=== PATIENT | female | born 1980 | race Caucasian/White ===

== ENCOUNTER 2016-09-19 13:10 | Emergency (ER) | payer OTHER ==
[~2016-09-19] VITALS: Ht 149.9 cm; Wt 81.0 kg
[~2016-09-19 13:10] MED LIST: DIPH25CA65 PO; INSDGIPEN SC; LEVO100T7 PO; ONDA4TAB46 PO; ONDA8TAB6 PO; PRED20TA PO; [UNRECOGNIZED DRUG - CODE] PO
[2016-09-19 13:24] VITALS: TEMP 36.5; Ht 149.9 cm; Wt 81.0 kg
[2016-09-19] MEDS ORDERED: ASPI81TA28 PO (14:19)
[2016-09-19] MEDS ORDERED: SYN100 PO (14:19)
[2016-09-19] MEDS ORDERED: INSPMPNVLG (14:19)
[2016-09-19] MEDS ORDERED: ERGO500037 PO (14:19)
[2016-09-19] MEDS ORDERED: PRENTAB26 PO (14:19)
[2016-09-19 14:51] LABS: BASO % 0.1 %; BASO ABS # 0.01 K/uL (0-0.2); COMPLETE YES; EOS % 0.3 %; HEMATOCRIT 33.9 % (37-47); IG% 0.3 %; LYMPH % 23.8 %; LYMPH ABS # 2.06 K/uL (1.2-3.4); MEAN CELL VOLUME 86.9 fL (80-100); MEAN CORPUSCULAR HGB CONC 33.3 g/dl (32-36); MEAN PLATELET VOLUME 10.8 fL (7.4-10.4); MONO % 5.3 %; NEUT % 70.2 %; PLATELET COUNT 201 K/uL (130-400); WHITE BLOOD COUNT 8.65 K/uL (4.8-10.8)
[2016-09-19 15:10] LABS: BUN/CREATININE RATIO 22.9 (10-20); CALCIUM 9.6 mg/dl (8.5-10.1); CREATININE 0.53 mg/dl (0.60-1.20); POTASSIUM 3.7 mmol/L (3.5-5.1)
[2016-09-19 15:51] LABS: URINE APPEARANCE CLOUDY (CLEAR); URINE BILIRUBIN NEG (NEG); URINE COLOR YELLOW; URINE EPITHELIAL CELL AUTO >30 /lpf (0-5); URINE NITRITE NEG (NEG); URINE SPECIFIC GRAVITY 1.029 (1.000-1.030); UROBILINOGEN NEG (NEG); ZZUR CULT IF INDIC CLEAN CATCH NO
[2016-09-19 15:53] LABS: REVIEW REQ? YES
[2016-09-19 15:54] LABS: MANUAL MICROSCOPIC REQUIRED? NO
--- NOTE | 2016-09-19 16:11 | DIAGNOSTIC IMAGING REPORT ---
LIMITED ULTRASOUND CLINICAL HISTORY: Vaginal bleeding. 15 weeks . COMPARISON STUDY: No previous studies for comparison. TECHNIQUE: Transabdominal sonography of the pelvis was performed. FINDINGS: A single viable intrauterine gestation is noted. Presentation is breech. heart rate is normal at 164 bpm. The cervix was not well visualized. The placenta is located anteriorly. No placental abnormalities are identified. Please note that a dedicated anatomical survey was not performed. The biparietal diameter measured 2.97 cm and the femur length measured 1.8 cm. Estimated age on this exam is 15 weeks and 3 days. IMPRESSION: 1. Single viable intrauterine gestation. 2. Normal heart rate of 164 bpm. 3. Breech presentation. 4. Anterior placenta with no placental abnormality identified. 5. Estimated gestational age of this exam of 15 weeks and 3 days. Electronically signed by: Francesco Lancaster M.D. 09/19/2016 4:10 PM Dictated Date/Time: 09/19/2016 4:08 PM
--- NOTE | 2016-09-19 18:17 | DIAGNOSTIC IMAGING REPORT ---
RENAL ULTRASOUND CLINICAL HISTORY: Hematuria. Left lower abdominal pain. COMPARISON STUDY: CT of the abdomen and pelvis April 28, 2016 and renal ultrasound July 06, 2006. TECHNIQUE: Sonography of the kidneys and the urinary bladder was performed. FINDINGS: This exam is mildly compromised by suboptimal penetration. There is fatty infiltration of the liver. The right kidney measures 12.4 x 5.5 x 6.1 cm and the left measures 11.3 x 6.5 x 5.7 cm. There is no hydronephrosis. Neither ureteral jet was identified. Renal echogenicity, size and cortical thickness were normal. No calculi are identified by sonography. IMPRESSION: Unremarkable sonographic appearance of the kidneys. No hydronephrosis. Electronically signed by: Francesco Lancaster M.D. 09/19/2016 6:16 PM Dictated Date/Time: 09/19/2016 6:14 PM
--- NOTE | 2016-09-19 18:53 | EMERGENCY ROOM VISIT NOTE ---
History First contact with patient: 14:00 Chief Complaint: ED VAG BLEEDING Stated Complaint: SPOTTING & MILD PAIN - 15 WKS History of Present Illness The patient is a 35 year old female who presents to the Emergency Room with complaints of vaginal spotting. the patient is 15 weeks .. She states today at approximately 1245 she started with some mild spotting vaginally. The patient states that she noticed dark pink blood in her underwear and she mainly notices when she wipes when she urinates. The patient also has some mild pelvic discomfort. She denies any flank pain, nausea or vomiting. The patient does admit that she was nauseated on Monday but not today. The patient states that she has had one miscarriage in the past. She has no living children. The patient states that she is followed by Denis at [place] and also [facility]. She did not contact her [employer] for her current symptoms. The patient also admits to a history of kidney stones. The patient denies any urinary symptoms of frequency, urgency, dysuria or hematuria. She denies any flank pain. Review of Systems 10 system review was performed and was negative unless stated otherwise history of present illness. Past Medical/Surgical History Medical Problems: (1) Diabetes (2) Vasculitis Family History Diabetes mellitus FHx: cancer FHx: gallbladder disease FHx: heart disease Hypertension Kidney disease Seizures Social History Smoking Status: Former Smoker Alcohol Use: occasionally Marital Status: in relationship Housing Status: lives with family Occupation Status: employed Current/Historical Medications Scheduled Aspirin (Aspirin Ec), 81 MG PO DAILY Ergocalciferol (Vitamin D 29724 Unit), 50,000 UNIT PO WK Insulin Aspart (novoLOG INSULIN PUMP ), 1 EA N/A UD Levothyroxine Sodium (Levothyroxine Sodium), 100 MCG PO 6XWK Levothyroxine Sodium (Synthroid), 200 MCG PO WK Metformin Hcl Er (Glucophage Er), 1,000 MG PO BID Multivit/Min/Iron/Fol Ac/Pren ( Vitamin), 1 TAB PO DAILY Allergies Coded Allergies: Amoxicillin (Verified Allergy, Severe, severe shortness of breath, 09/19/16) Clavulanic Acid (Verified Allergy, Severe, severe shortness of breath, 09/19) Magnesium Salicylate (Verified Allergy, Unknown, UNK, 09/19/16) Tramadol (Verified Allergy, Unknown, itchy, 09/19/16) Physical Exam Vital Signs Date Time Temp Pulse Resp B/P Pulse Ox O2 Delivery O2 Flow Rate FiO2 09/19/16 18:15 97 16 122/67 98 Room Air 09/19/16 16:54 95 16 119/57 98 Room Air 09/19/16 13:24 36.5 109 18 156/80 96 Room Air Physical Exam GENERAL: 35-year-old white female who is 15 weeks appears in no acute distress. . MENTAL Status: Alert and oriented 3. MOUTH: Mucosa is moist NECK: Supple, no lymphadenopathy noted. No carotid bruits noted. LUNGS: Clear auscultation without wheezes rales or rhonchi. CARDIAC: Regular rate and rhythm without murmur. Pulses is full and equal throughout. BACK: No CVA tenderness noted. ABDOMEN: Positive bowel sounds all 4 quadrants. Soft, mild tenderness palpation in the left lower quadrant otherwise nontender to palpation without organomegaly or masses. PELVIC: Vulva and vagina without lesion. There is a small amount of blood in the vaginal vault and blood coming from the os. Cervix without lesion. Manual exam revealed uterus midline without masses or tenderness. Slight enlargement consistent with . Adnexal regions without masses. Mild tenderness in the left adnexal region. EXTREMITIES: No cyanosis or edema noted. Medical Decision & Procedures ER Provider Diagnostic Interpretation: LIMITED ULTRASOUND CLINICAL HISTORY: Vaginal bleeding. 15 weeks . COMPARISON STUDY: No previous studies for comparison. TECHNIQUE: Transabdominal sonography of the pelvis was performed. FINDINGS: A single viable intrauterine gestation is noted. Presentation is breech. heart rate is normal at 164 bpm. The cervix was not well visualized. The placenta is located anteriorly. No placental abnormalities are identified. Please note that a dedicated anatomical survey was not performed. The biparietal diameter measured 2.97 cm and the femur length measured 1.8 cm. Estimated age on this exam is 15 weeks and 3 days. IMPRESSION: 1. Single viable intrauterine gestation. 2. Normal heart rate of 164 bpm. 3. Breech presentation. 4. Anterior placenta with no placental abnormality identified. 5. Estimated gestational age of this exam of 15 weeks and 3 days. Electronically signed by: Francesco Lancaster M.D. 09/19/2016 4:10 PM RENAL ULTRASOUND CLINICAL HISTORY: Hematuria. Left lower abdominal pain. COMPARISON STUDY: CT of the abdomen and pelvis April 28, 2016 and renal ultrasound July 06, 2006. TECHNIQUE: Sonography of the kidneys and the urinary bladder was performed. FINDINGS: This exam is mildly compromised by suboptimal penetration. There is fatty infiltration of the liver. The right kidney measures 12.4 x 5.5 x 6.1 cm and the left measures 11.3 x 6.5 x 5.7 cm. There is no hydronephrosis. Neither ureteral jet was identified. Renal echogenicity, size and cortical thickness were normal. No calculi are identified by sonography. IMPRESSION: Unremarkable sonographic appearance of the kidneys. No hydronephrosis. Electronically signed by: Francesco Lancaster M.D. 09/19/2016 6:16 PM Laboratory Results 09/19/16 14:30 Red Blood Count 3.90, Mean Corpuscular Volume 86.9, Mean Corpuscular Hemoglobin 29.0, Mean Corpuscular Hemoglobin Concent 33.3, Mean Platelet Volume 10.8, Neutrophils (%) (Auto) 70.2, Lymphocytes (%) (Auto) 23.8, Monocytes (%) (Auto) 5.3, Eosinophils (%) (Auto) 0.3, Basophils (%) (Auto) 0.1, Neutrophils # (Auto) 6.06, Lymphocytes # (Auto) 2.06, Monocytes # (Auto) 0.46, Eosinophils # (Auto) 0.03, Basophils # (Auto) 0.01 09/19/16 14:30 Test 09/19/16 14:10 09/19/16 14:30 Urine Color YELLOW Urine Appearance CLOUDY (CLEAR) Urine pH 5.0 (4.5-7.5) Urine Specific [place] 1.029 (1.000-1.030) Urine Protein NEG (NEG) Urine Glucose (UA) NEG (NEG) Urine Ketones 1+ (NEG) Urine Occult Blood 3+ (NEG) Urine Nitrite NEG (NEG) Urine Bilirubin NEG (NEG) Urine Urobilinogen NEG (NEG) Urine Leukocyte Esterase NEG (NEG) Urine WBC (Auto) 1-5 /hpf (0-5) Urine RBC (Auto) 5-10 /hpf (0-4) Urine Hyaline Casts (Auto) 1-5 /lpf (0-5) Urine Epithelial Cells (Auto) >30 /lpf (0-5) Urine Bacteria (Auto) NEG (NEG) Urine Crystals CALCIUM OXALATE (NONE White Blood Count 8.65 K/uL (4.8-10.8) Red Blood Count 3.90 M/uL (4.2-5.4) Hemoglobin 11.3 g/dL (12.0-16.0) Hematocrit 33.9 % (37-47) Mean Corpuscular Volume 86.9 fL (80-100) Mean Corpuscular Hemoglobin 29.0 pg (25-34) Mean Corpuscular Hemoglobin Concent 33.3 g/dl (32-36) Platelet Count 201 K/uL (130-400) Mean Platelet Volume 10.8 fL (7.4-10.4) Neutrophils (%) (Auto) 70.2 % Lymphocytes (%) (Auto) 23.8 % Monocytes (%) (Auto) 5.3 % Eosinophils (%) (Auto) 0.3 % Basophils (%) (Auto) 0.1 % Neutrophils # (Auto) 6.06 K/uL (1.4-6.5) Lymphocytes # (Auto) 2.06 K/uL (1.2-3.4) Monocytes # (Auto) 0.46 K/uL (0.11-0.59) Eosinophils # (Auto) 0.03 K/uL (0-0.5) Basophils # (Auto) 0.01 K/uL (0-0.2) RDW Standard Deviation 43.2 fL (36.4-46.3) RDW Coefficient of Variation 13.7 % (11.5-14.5) Immature Granulocyte % (Auto) 0.3 % Immature Granulocyte # (Auto) 0.03 K/uL (0.00-0.02) Anion Gap 10.0 mmol/L (3-11) Est Creatinine Clear Calc Drug Dose 136.4 ml/min Estimated GFR () 142.6 Estimated GFR (Non- 123.0 BUN/Creatinine Ratio 22.9 (10-20) Calcium Level 9.6 mg/dl (8.5-10.1) Human Chorionic Gonadotropin, Quant 17750 mIU/mL ED Course The patient was evaluated. IV access was obtained. CBC and differential, renal profile was ordered. Blood type was ordered. The patient's blood type was A+ therefore she will not require RhoGAM. Urinalysis was ordered. Urinalysis analysis revealed some blood but no bacteria. It also revealed some calcium oxalate therefore a renal ultrasound was ordered. Culture is pending. Quantitative beta-hCG was ordered and was 42,[id number] consistent with her 15 weeks .. ultrasound was ordered and interpreted by the radiologist as above with a viable 15 week . Normal heart tones. The patient was informed of the findings.. Renal ultrasound revealed no evidence of hydronephrosis. The patient was informed of the findings. The patient was resting comfortably and was discharged home in stable condition. Medical Decision Differential diagnosis include miscarriage, UTI, pyelonephritis, kidney stone, Impression Primary Impression: Hematuria Additional Impression: Vaginal bleeding in patient at less than 20 weeks gestation Departure Information Dispostion Home / Self-Care Condition GOOD Referrals Richar Sosa III, M.D. (PCP) Forms HOME CARE DOCUMENTATION FORM, IMPORTANT VISIT INFORMATION, WORK / SCHOOL INSTRUCTIONS Patient Instructions [employer] Additional Instructions Push fluids. Tylenol as needed for pain. We will call you with the urine culture results if they are positive. Call your [employer]PER[employer]OR tomorrow for follow-up appointment as soon as possible. If you have any large amounts of vaginal bleeding return to the ER immediately. Problem Qualifiers
[2016-09-19 18:54] VITALS: BP 123/87; PULSE 103; O2SAT 98
[2016-09-19] MEDS ORDERED: METF500T5 PO (23:07)
== END 2016-09-19 18:57 | disposition home or self-care (01) ==
LOC: C.EDB 13:12
DX: R31.9 Hematuria, unspecified (principal); O20.9 Hemorrhage in early pregnancy, unspecified; Z3A.15 15 weeks gestation of pregnancy; O24.112 Pre-existing type 2 diabetes mellitus, in pregnancy, second trimester; Z87.891 Personal history of nicotine dependence; Z83.3 Family history of diabetes mellitus; Z82.49 Family history of ischemic heart disease and other diseases of the circulatory system; Z82.0 Family history of epilepsy and other diseases of the nervous system; Z79.82 Long term (current) use of aspirin; Z79.4 Long term (current) use of insulin

== ENCOUNTER 2016-09-25 05:36 | Emergency (ER) | payer OTHER ==
[~2016-09-25] VITALS: Ht 149.9 cm; Wt 80.2 kg
[~2016-09-25 05:36] MED LIST changes: +ASPI81TA28 PO; -DIPH25CA65 PO; +ERGO500037 PO; -INSDGIPEN SC; +INSPMPNVLG; +METF500T5 PO; -ONDA4TAB46 PO; -ONDA8TAB6 PO; -PRED20TA PO; +PRENTAB26 PO; +SYN100 PO; -[UNRECOGNIZED DRUG - CODE] PO
[2016-09-25 05:44] VITALS: TEMP 36.5; Ht 149.9 cm; Wt 80.2 kg
[2016-09-25] MEDS ORDERED: SODIUM CHLORIDE 0.9% 1000ML 1,000 ML IV STA ×2 (05:50)
[2016-09-25] MEDS ORDERED: ACETAMINOPHEN 500 MG TAB PO STA (05:50)
[2016-09-25] MEDS ORDERED: ONDANSETRON INJ 2 MG/ML 2 ML VIAL IV STA (05:50)
[2016-09-25 06:09] LABS: BASO % 0.1 %; BASO ABS # 0.01 K/uL (0-0.2); COMPLETE YES; EOS % 0.3 %; IG% 0.3 %; LYMPH % 15.7 %; LYMPH ABS # 1.65 K/uL (1.2-3.4); MEAN CELL VOLUME 85.6 fL (80-100); MEAN CORPUSCULAR HGB CONC 33.8 g/dl (32-36); MEAN PLATELET VOLUME 10.6 fL (7.4-10.4); MONO % 6.1 %; NEUT % 77.5 %; PLATELET COUNT 226 K/uL (130-400); RED BLOOD COUNT 3.97 M/uL (4.2-5.4); WHITE BLOOD COUNT 10.48 K/uL (4.8-10.8)
[2016-09-25 06:37] LABS: URINE APPEARANCE CLOUDY (CLEAR); URINE BILIRUBIN NEG (NEG); URINE COLOR YELLOW; URINE EPITHELIAL CELL AUTO >30 /lpf (0-5); URINE NITRITE NEG (NEG); URINE PH 5.5 (4.5-7.5); URINE SPECIFIC GRAVITY 1.033 (1.000-1.030); UROBILINOGEN NEG (NEG); ZZUR CULT IF INDIC CLEAN CATCH YES
[2016-09-25 06:41] LABS: MANUAL MICROSCOPIC REQUIRED? NO; REVIEW REQ? NO
--- NOTE | 2016-09-25 07:14 | DIAGNOSTIC IMAGING REPORT ---
ABDOMINAL ULTRASOUND, RIGHT UPPER QUADRANT HISTORY: Right upper quadrant pain. COMPARISON: Right upper quadrant ultrasound June 25, 2011, CT of the abdomen and pelvis April 28, 2016 and renal ultrasound September 19, 2016. FINDINGS: Hepatic echogenicity is increased. No hepatic lesions are identified. There is no biliary ductal dilatation. There may be minimal sludge within the gallbladder. There are no gallstones. There is no gallbladder wall thickening. The pancreatic body is normal. The head and tail are obscured by overlying bowel gas. There is no right hydronephrosis. IMPRESSION: 1. No gallstones or biliary ductal dilatation. 2. Minimal sludge within the gallbladder. No gallbladder wall thickening. 3. No right hydronephrosis. 4. Fatty liver. Electronically signed by: Francesco Lancaster M.D. 09/25/2016 7:11 AM Dictated Date/Time: 09/25/2016 7:10 AM
[2016-09-25 07:16] LABS: ALT/SGPT 25 U/L (12-78); BLOOD UREA NITROGEN 10 mg/dl (7-18); BUN/CREATININE RATIO 21.1 (10-20); CALCIUM 8.8 mg/dl (8.5-10.1); CARBON DIOXIDE 22 mmol/L (21-32); CHLORIDE 105 mmol/L (98-107); CREATININE 0.46 mg/dl (0.60-1.20); GLUCOSE 102 mg/dl (70-99); SODIUM 140 mmol/L (136-145)
--- NOTE | 2016-09-25 07:17 | EMERGENCY ROOM VISIT NOTE ---
History First contact with patient: 05:48 Chief Complaint: FLANK PAIN Stated Complaint: RIGHT FLANK PAIN,VOMITING History of Present Illness The patient is a 35 year old female who presents to the Emergency Room with complaints of right flank right upper quadrant pain for the past day described as aching, ranging in severity currently 5 out of 10. Patient is 4 months . She follows with [facility]. This is her second . No living children. Nothing makes the pain better or worse. This is not like her kidney stone pain. Patient complains of urinary frequency without dysuria. Patient denies chest pain, dyspnea, fever, chills, cough, congestion, vaginal itching or discharge, diarrhea. Patient has HSP vasculitis falls with nephrology at Dr. Connor Barrios. Review of Systems See HPI for pertinent positives & negatives. A total of 10 systems reviewed and were otherwise negative. Past Medical/Surgical History Medical Problems: (1) Diabetes (2) Vasculitis Kidney stones Family History Diabetes mellitus FHx: cancer FHx: gallbladder disease FHx: heart disease Hypertension Kidney disease Seizures Social History Smoking Status: Never Smoker Alcohol Use: occasionally Marital Status: in relationship Housing Status: lives with family Occupation Status: employed Current/Historical Medications Scheduled Aspirin (Aspirin Ec), 81 MG PO DAILY Ergocalciferol (Vitamin D 33762 Unit), 50,000 UNIT PO WK Insulin Aspart (novoLOG INSULIN PUMP ), 1 EA N/A UD Levothyroxine Sodium (Levothyroxine Sodium), 100 MCG PO 6XWK Levothyroxine Sodium (Synthroid), 200 MCG PO WK Metformin Hcl Er (Glucophage Er), 1,000 MG PO BID Multivit/Min/Iron/Fol Ac/Pren ( Vitamin), 1 TAB PO DAILY Allergies Coded Allergies: Amoxicillin (Verified Allergy, Severe, severe shortness of breath, 09/25/16) Clavulanic Acid (Verified Allergy, Severe, severe shortness of breath, 09/25) Magnesium Salicylate (Verified Allergy, Unknown, UNK, 09/25/16) Tramadol (Verified Allergy, Unknown, itchy, 09/25/16) Physical Exam Vital Signs Date Time Temp Pulse Resp B/P Pulse Ox O2 Delivery O2 Flow Rate FiO2 09/25/16 06:37 91 18 125/73 99 Room Air 09/25/16 06:36 89 09/25/16 06:06 Room Air 09/25/16 05:44 36.5 93 18 151/80 96 Room Air Physical Exam VITALS: Vitals are noted on the nurse's note and reviewed by myself. Vital signs mildly hypertensive, repeat is improved GENERAL: Pleasant female, in no acute distress, nondiaphoretic, well-developed well-nourished. SKIN: The skin was without rashes, erythema, edema, or bruising. There is no tenting of the skin. Capillary reflex less than 2 seconds. HEAD: Normocephalic atraumatic. EARS: External auditory canals clear, tympanic membranes pearly saini without erythema or effusion bilaterally. EYES: Pupils equal round and reactive to light and accommodation. Conjunctivae without injection, sclerae without icterus. Extraocular movements intact. NOSE: Patent, turbinates without inflammation or discharge. MOUTH: Mucous membranes moist. Pharynx without erythema or exudate. Uvula midline. Airway patent. Tongue does not deviate. NECK: Supple without nuchal rigidity. No lymphadenopathy. No thyromegaly. Cervical spine is nontender. No JVD. HEART: Regular rate and rhythm without murmurs gallops or rubs. LUNGS: Clear to auscultation bilaterally without wheezes, rales or rhonchi. No dullness to percussion. No retractions or accessory muscle use. ABDOMEN: Positive bowel sounds x 4. Normal tympanic percussion. Soft, tender to palpation right upper quadrant, minimal right CVA tenderness, 16 weeks , without masses or organomegaly. Smallwood sign negative. No guarding or rebound tenderness. MUSCULOSKELETAL: No muscle atrophy, erythema, or edema noted. NEURO: Patient was alert and oriented to person place and time. Normal sensation to light and sharp touch. No focal neurological deficits. Medical Decision & Procedures Laboratory Results 09/25/16 05:55 Red Blood Count 3.97, Mean Corpuscular Volume 85.6, Mean Corpuscular Hemoglobin 29.0, Mean Corpuscular Hemoglobin Concent 33.8, Mean Platelet Volume 10.6, Neutrophils (%) (Auto) 77.5, Lymphocytes (%) (Auto) 15.7, Monocytes (%) (Auto) 6.1, Eosinophils (%) (Auto) 0.3, Basophils (%) (Auto) 0.1, Neutrophils # (Auto) 8.12, Lymphocytes # (Auto) 1.65, Monocytes # (Auto) 0.64, Eosinophils # (Auto) 0.03, Basophils # (Auto) 0.01 09/25/16 05:55 Test 09/25/16 05:45 09/25/16 05:55 Urine Color YELLOW Urine Appearance CLOUDY (CLEAR) Urine pH 5.5 (4.5-7.5) Urine Specific [place] 1.033 (1.000-1.030) Urine Protein 1+ (NEG) Urine Glucose (UA) NEG (NEG) Urine Ketones 2+ (NEG) Urine Occult Blood 3+ (NEG) Urine Nitrite NEG (NEG) Urine Bilirubin NEG (NEG) Urine Urobilinogen NEG (NEG) Urine Leukocyte Esterase NEG (NEG) Urine WBC (Auto) 1-5 /hpf (0-5) Urine RBC (Auto) >30 /hpf (0-4) Urine Hyaline Casts (Auto) 5-10 /lpf (0-5) Urine Epithelial Cells (Auto) >30 /lpf (0-5) Urine Bacteria (Auto) 1+ (NEG) White Blood Count 10.48 K/uL (4.8-10.8) Red Blood Count 3.97 M/uL (4.2-5.4) Hemoglobin 11.5 g/dL (12.0-16.0) Hematocrit 34.0 % (37-47) Mean Corpuscular Volume 85.6 fL (80-100) Mean Corpuscular Hemoglobin 29.0 pg (25-34) Mean Corpuscular Hemoglobin Concent 33.8 g/dl (32-36) Platelet Count 226 K/uL (130-400) Mean Platelet Volume 10.6 fL (7.4-10.4) Neutrophils (%) (Auto) 77.5 % Lymphocytes (%) (Auto) 15.7 % Monocytes (%) (Auto) 6.1 % Eosinophils (%) (Auto) 0.3 % Basophils (%) (Auto) 0.1 % Neutrophils # (Auto) 8.12 K/uL (1.4-6.5) Lymphocytes # (Auto) 1.65 K/uL (1.2-3.4) Monocytes # (Auto) 0.64 K/uL (0.11-0.59) Eosinophils # (Auto) 0.03 K/uL (0-0.5) Basophils # (Auto) 0.01 K/uL (0-0.2) RDW Standard Deviation 42.5 fL (36.4-46.3) RDW Coefficient of Variation 13.6 % (11.5-14.5) Immature Granulocyte % (Auto) 0.3 % Immature Granulocyte # (Auto) 0.03 K/uL (0.00-0.02) Anion Gap 13.0 mmol/L (3-11) Est Creatinine Clear Calc Drug Dose 156.4 ml/min Estimated GFR () 149.4 Estimated GFR (Non- 128.9 BUN/Creatinine Ratio 21.1 (10-20) Calcium Level 8.8 mg/dl (8.5-10.1) Direct Bilirubin < 0.1 mg/dl (0-0.2) Alanine Aminotransferase (ALT/SGPT) 25 U/L (12-78) Albumin 3.0 gm/dl (3.4-5.0) Lipase 200 U/L (73-393) Medications Administered Medications (Trade) Dose Ordered Sig/Dunia Route Start Time Stop Time Status Last Admin Dose Admin Sodium Chloride 1,000 ml @ 999 mls/hr Q1H1M STAT IV 09/25/16 05:50 09/25/16 06:50 DC 09/25/16 06:04 999 MLS/HR Sodium Chloride (Nss 1000ml) 1,000 ml @ 125 mls/hr Q8H STAT IV 09/25/16 05:50 09/25/16 13:49 09/25/16 06:37 125 MLS/HR Acetaminophen (Tylenol Tab) 1,000 mg NOW STAT PO 09/25/16 05:50 09/25/16 05:53 DC 09/25/16 06:04 1,000 MG Ondansetron HCl (Zofran Inj) 4 mg NOW STAT IV 09/25/16 05:50 09/25/16 05:53 DC 09/25/16 06:04 4 MG ED Course Prior records/ancillary studies reviewed. Triage Nursing notes reviewed. Additional history obtained from family The patient's history was concerning for abdominal pain. Differential diagnosis: Etiologies such as ligamental stretching with , problem, appendicitis, diverticulitis, PUD, biliary pathology, UTI, pancreatitis, obstruction, mesenteric ischemia, aortic pathology, infections, inflammatory bowel disease, renal colic, as well as others were entertained. Physical examination findings: As above. ER treatment provided: IV fluids, Tylenol, Zofran On reassessment the patient felt better. Diagnostics interpreted by me: heart tones reviewed and normal The labs revealed no worrisome leukocytosis. Hematuria. Patient has known HSP vasculitis Imaging studies: US GALLBLADDER: The liver is normal in size with increased echogenicity suggesting hepatic steatosis. Small amount of sludge within the gallbladder. No gallstones, gallbladder wall thickening, or pericholecystic fluid. The common bile duct, and right kidney are unremarkable. The partially visualized pancreas is unremarkable. Radiologist: Giorgi Torres MD ABDOMINAL ULTRASOUND, RIGHT UPPER QUADRANT HISTORY: Right upper quadrant pain. COMPARISON: Right upper quadrant ultrasound June 25, 2011, CT of the abdomen and pelvis April 28, 2016 and renal ultrasound September 19, 2016. FINDINGS: Hepatic echogenicity is increased. No hepatic lesions are identified. There is no biliary ductal dilatation. There may be minimal sludge within the gallbladder. There are no gallstones. There is no gallbladder wall thickening. The pancreatic body is normal. The head and tail are obscured by overlying bowel gas. There is no right hydronephrosis. IMPRESSION: 1. No gallstones or biliary ductal dilatation. 2. Minimal sludge within the gallbladder. No gallbladder wall thickening. 3. No right hydronephrosis. 4. Fatty liver. Electronically signed by: Francesco Lancaster M.D. Exam and history seem consistent with right upper quadrant flank pain that is now resolved. Patient did not have an acute abdomen on exam. No hydronephrosis concerning for kidney stone on ultrasound. She is well- appearing. She is tolerating fluids. THis could be ligamental stretching with . She is advised to follow-up with OB in a day or 2 or here in the ER sooner for abdominal pain, fevers, vomiting, worsening signs or symptoms or as needed. Patient has HSP vasculitis and her hematuria Is most likely due to this. She is advised to follow-up with her resource recovery specialist and [employer]. By the evaluation outlined above emergent etiologies such as appendicitis, diverticulitis, PUD, biliary pathology, UTI, pancreatitis, obstruction, mesenteric ischemia, aortic pathology, infections, inflammatory bowel disease, renal colic, as well as others were deemed relatively unlikely. The pt informed about the findings as listed above. All questions were answered and pleased with the treatment. Return instructions were outlined and the patient was discharged in stable condition. Referral: The patient was referred back to their [employer] for follow-up in 2 to 3 days for a recheck of the current condition. Case reviewed with my attending Medical Decision As above Impression Primary Impression: Right upper quadrant abdominal pain Departure Information Dispostion Home / Self-Care Condition GOOD Referrals Richar Sosa III, M.D. (PCP) Patient Instructions My [facility] Additional Instructions DO NOT drive, drink alcohol, operate machinery, or perform dangerous activities today. You were given medications in the ER that can affect your ability to safely function or operate a vehicle. Acetaminophen(Tylenol) may be used for fever or pain. Use 1000mg every six hours as needed. Avoid using more than 3000mg in a 24 hour period. Zofran 4mg: Take one every six hours as needed for nausea. Avoid alcohol, operating machinery or dangerous equipment, working on ladders or roofs, DRIVING , or situations where being under the influence may be dangerous. Rest and drink plenty of fluids as tolerated. Slow sips of water or sports drinks are recommended instead of large amounts all at once. Continue current medications. Once your stomach is settled start with a clear liquid diet (jello, soup broth, etc.) and then advance as tolerated. You should avoid full, heavy meals for about 24 hrs from the time your symptoms resolved. Return to the ER immediately for worsening or persistent abdominal pain, vomiting, fevers, chest pains, difficulty breathing, black or bloody stools, worsening of your condition, or as needed. Follow up with your [employer] OPERATOR in 24 hours for a recheck of your current condition.
[2016-09-25 07:19] LABS: ALKALINE PHOSPHATASE 50 U/L (45-117); AST/SGOT 17 U/L (15-37)
[2016-09-25 07:30] VITALS: BP 125/73; PULSE 91; O2SAT 99
== END 2016-09-25 07:31 | disposition home or self-care (01) ==
LOC: C.EDB 05:37 → C.EDA 07:31
DX: R10.11 Right upper quadrant pain (principal); R11.10 Vomiting, unspecified; E11.9 Type 2 diabetes mellitus without complications; Z79.4 Long term (current) use of insulin; Z79.899 Other long term (current) drug therapy; Z87.442 Personal history of urinary calculi

== ENCOUNTER 2017-01-03 08:29 | Outpatient (CLI) | payer OTHER ==
--- NOTE | 2017-01-03 09:11 | Discharge Instructions ---
Discharge Instructions Date of Service Jan 03, 2017. Admission Reason for Admission: Check Bleeding Discharge Discharge Diagnosis / Problem: at 29.6 weeks, vaginal spotting Discharge Goals Goal(s): Continuing OB care Activity Recommendations Activity Limitations: resume your previous activity . Instructions / Follow-Up Instructions / Follow-Up ACTIVITY RECOMMENDATIONS: See Labor Sheet. SPECIAL CARE INSTRUCTIONS: Call Doctor if: * Regular contractions every 5 minutes or greater. * Bleeding * Water breaks or is leaking * Decreased movement * Fever >100.4 degrees F * Pain not relieved by routine measures or pain medication ordered. FOLLOW UP VISIT: Follow-up Visit with:[facility] When:Next scheduled appointment 01/16/17. Current Hospital Diet Patient's current hospital diet: Discharge Diet Recommended Diet: Regular OB Diet Pending Studies Studies pending at discharge: no Medical Emergencies . Who to Call and When: Medical Emergencies: If at any time you feel your situation is an emergency, please call 911 immediately. . Non-Emergent Contact Non-Emergency issues call your: Primary Care Provider, Film Reproducer . . "Provider Documentation" section prepared by Zechariah Hurt. . VTE Core Measure Inpt VTE Proph given/why not?: Treatment not indicated
== END 2017-01-03 10:20 | disposition home or self-care (01) ==
LOC: C.LD 08:29 → C.OPB 08:29
PROVIDERS: ATTEND Obstetrics & Gynecology
DX: O26.853 Spotting complicating pregnancy, third trimester (principal); Z3A.29 29 weeks gestation of pregnancy

== ENCOUNTER 2017-02-05 06:43 | Outpatient (CLI) | payer OTHER ==
[~2017-02-05] VITALS: Ht 149.9 cm; Wt 86.6 kg
[2017-02-05 08:02] VITALS: Ht 149.9 cm; Wt 86.6 kg
--- NOTE | 2017-02-05 10:35 | Progress Note ---
Progress Note Date of Service Feb 05, 2017. Progress Note 36 F P0010 at 34.2 weeks with onset of irregular contractions yesterday after working double shift. Urine shows large ketones on dip. No leakage of fluid or any bleeding. FHT Cat 1 with no contractions. Patient hydrated orally. Cervix closed and thick. Will d/c home and have patient f/u in office next week.
== END 2017-02-05 10:40 | disposition home or self-care (01) ==
LOC: C.OPB 06:43 → C.LD 06:47 → C.OPB 10:40
PROVIDERS: ATTEND Obstetrics & Gynecology
DX: O62.9 Abnormality of forces of labor, unspecified (principal); Z3A.34 34 weeks gestation of pregnancy

== ENCOUNTER 2017-02-28 12:30 | Outpatient (CLI) | payer OTHER ==
[~2017-02-28 12:30] MED LIST changes: -LEVO100T7 PO
[2017-02-28 13:13] LABS: INR 0.9 (0.9-1.1); PROTHROMBIN TIME (PATIENT) 9.8 SECONDS (9.0-12.0)
[2017-02-28 13:15] LABS: BASO % 0.1 %; BASO ABS # 0.01 K/uL (0-0.2); EOS % 0.4 %; HEMATOCRIT 33.9 % (37-47); IG% 0.4 %; LYMPH % 23.1 %; LYMPH ABS # 1.59 K/uL (1.2-3.4); MEAN CORPUSCULAR HEMOGLOBIN 27.8 pg (25-34); MEAN PLATELET VOLUME 12.5 fL (7.4-10.4); MONO % 6.4 %; NEUT % 69.6 %; PLATELET COUNT 141 K/uL (130-400); RED BLOOD COUNT 3.99 M/uL (4.2-5.4); WHITE BLOOD COUNT 6.88 K/uL (4.8-10.8)
[2017-02-28 13:26] LABS: COMPLETE YES; MEAN CORPUSCULAR HGB CONC 32.7 g/dl (32-36)
[2017-02-28 13:31] LABS: ALB/GLOB RATIO 0.6 (0.9-2); ALKALINE PHOSPHATASE 170 U/L (45-117); ALT/SGPT 15 U/L (12-78); AST/SGOT 17 U/L (15-37); BLOOD UREA NITROGEN 11 mg/dl (7-18); BUN/CREATININE RATIO 24.1 (10-20); CALCIUM 9.2 mg/dl (8.5-10.1); CARBON DIOXIDE 22 mmol/L (21-32); CHLORIDE 105 mmol/L (98-107); CREATININE 0.44 mg/dl (0.60-1.20); GLUCOSE 73 mg/dl (70-99); SODIUM 138 mmol/L (136-145)
[2017-02-28 13:36] LABS: ALT/SGPT 15 U/L (12-78); AST/SGOT 16 U/L (15-37); CREATININE 0.41 mg/dl (0.60-1.20); URIC ACID 6.1 mg/dl (2.6-7.2)
[2017-02-28 13:38] LABS: ALKALINE PHOSPHATASE 164 U/L (45-117)
[2017-02-28 14:19] LABS: URINE PROTIEN/CREAT RATIO 0.5 (0-0.2); URINE TOTAL PROTEIN 67.5 mg/dl (0-11.9)
[2017-02-28 14:29] LABS: URINE APPEARANCE CLOUDY (CLEAR); URINE BILIRUBIN NEG (NEG); URINE COLOR YELLOW; URINE EPITHELIAL CELL AUTO >30 /lpf (0-5); URINE NITRITE NEG (NEG); URINE SPECIFIC GRAVITY 1.023 (1.000-1.030); UROBILINOGEN NEG (NEG)
[2017-02-28 14:39] LABS: MANUAL MICROSCOPIC REQUIRED? NO; REVIEW REQ? YES
--- NOTE | 2017-02-28 15:16 | Progress Note ---
Progress Note Date of Service Feb 28, 2017. Progress Note 36 F P0010 at 37.6 weeks sent over from office with 4+ urine dipped on urine today. Her BP and vital were otherwise normal. She is a diabetic on an insulin pump. She denies leakage of fluid or any bleeding. T Cat 1. No edema of hands or feet. Labs done and reviewed Last 24 Hours Test 02/28/17 12:30 02/28/17 12:49 02/28/17 14:49 Urine Color YELLOW Urine Appearance CLOUDY Urine pH 6.0 Urine Specific [place] 1.023 Urine Protein 1+ Urine Glucose (UA) NEG Urine Ketones 1+ Urine Occult Blood NEG Urine Nitrite NEG Urine Bilirubin NEG Urine Urobilinogen NEG Urine Leukocyte Esterase SMALL Urine Random Creatinine 140.0 mg/dl Urine Random Total Protein 67.5 mg/dl Urine Protein/Creatinine Ratio 0.5 White Blood Count 6.88 K/uL Red Blood Count 3.99 M/uL Hemoglobin 11.1 g/dL Hematocrit 33.9 % Mean Corpuscular Volume 85.0 fL Mean Corpuscular Hemoglobin 27.8 pg Mean Corpuscular Hemoglobin Concent 32.7 g/dl Platelet Count 141 K/uL Mean Platelet Volume 12.5 fL Neutrophils (%) (Auto) 69.6 % Lymphocytes (%) (Auto) 23.1 % Monocytes (%) (Auto) 6.4 % Eosinophils (%) (Auto) 0.4 % Basophils (%) (Auto) 0.1 % Neutrophils # (Auto) 4.78 K/uL Lymphocytes # (Auto) 1.59 K/uL Monocytes # (Auto) 0.44 K/uL Eosinophils # (Auto) 0.03 K/uL Basophils # (Auto) 0.01 K/uL RDW Standard Deviation 48.2 fL RDW Coefficient of Variation 15.6 % Immature Granulocyte % (Auto) 0.4 % Immature Granulocyte # (Auto) 0.03 K/uL Prothrombin Time 9.8 SECONDS Prothromb Time International Ratio 0.9 Activated Partial Thromboplast Time 26.6 SECONDS Partial Thromboplastin Ratio 1.0 Sodium Level 138 mmol/L Potassium Level 4.0 mmol/L Chloride Level 105 mmol/L Carbon Dioxide Level 22 mmol/L Anion Gap 11.0 mmol/L Blood Urea Nitrogen 11 mg/dl Creatinine 0.44 mg/dl Estimated GFR () > 150.0 Estimated GFR (Non- 129.9 BUN/Creatinine Ratio 24.1 Random Glucose 73 mg/dl Uric Acid 6.1 mg/dl Calcium Level 9.2 mg/dl Total Bilirubin 0.3 mg/dl Direct Bilirubin < 0.1 mg/dl Aspartate Amino Transf (AST/SGOT) 17 U/L Alanine Aminotransferase (ALT/SGPT) 15 U/L Alkaline Phosphatase 170 U/L Lactate Dehydrogenase 146 U/L Total Protein 7.3 gm/dl Albumin 2.6 gm/dl Globulin 4.7 gm/dl Albumin/Globulin Ratio 0.6 Will obtain 24 hour urine and instructed to call if any headache, visual changes or labor. She needs to hydrate as she is clinically dehydrated. follow up this week on in office.
[2017-03-01 16:19] LABS: PATIENT HEIGHT 149.9 cm
[2017-03-01 17:05] LABS: CREATININE 0.53 mg/dl (0.6-1.2)
== END 2017-02-28 15:15 | disposition home health service (06) ==
LOC: C.OPB 12:30 → C.LD 12:32 → C.OPB 15:15
PROVIDERS: ATTEND Obstetrics & Gynecology
DX: O99.283 Endocrine, nutritional and metabolic diseases complicating pregnancy, third trimester (principal); E86.0 Dehydration; O24.113 Pre-existing type 2 diabetes mellitus, in pregnancy, third trimester; Z96.41 Presence of insulin pump (external) (internal); Z3A.37 37 weeks gestation of pregnancy

== ENCOUNTER 2017-03-08 10:24 | Inpatient (IN) | payer OTHER ==
[~2017-03-08] VITALS: Ht 149.9 cm; Wt 84.1 kg
[2017-03-08 20:11] VITALS: Ht 149.9 cm; Wt 84.1 kg
[2017-03-08] MEDS ORDERED: LACTATED RINGER'S 1000ML 1,000 ML IV PRN (20:22)
[2017-03-08] MEDS ORDERED: SODIUM CHLORIDE 0.9% 1000ML 1,000 ML IV SCH (20:26)
[2017-03-08] MEDS ORDERED: DEXTROSE 50% 50 ML SYR IV PRN (20:30)
[2017-03-08] MEDS ORDERED: PHARMACY GLYCEMIC MGMT CONSULT PRN (20:30)
[2017-03-08 20:47] LABS: HEMATOCRIT 34.1 % (37-47); MEAN CELL VOLUME 86.3 fL (80-100); MEAN CORPUSCULAR HEMOGLOBIN 28.4 pg (25-34); MEAN CORPUSCULAR HGB CONC 32.8 g/dl (32-36); MEAN PLATELET VOLUME 11.9 fL (7.4-10.4); PLATELET COUNT 149 K/uL (130-400); RED BLOOD COUNT 3.95 M/uL (4.2-5.4); WHITE BLOOD COUNT 8.01 K/uL (4.8-10.8)
[2017-03-08] MEDS ORDERED: INSULIN REGULAR 250 UNITS in SODIUM CHLORIDE 0.9% 250ML 250 ML IV SCH (21:00)
[2017-03-08] MEDS ORDERED: DINOPROSTONE 10 MG INSERT PV ONE (21:00)
[2017-03-08] MEDS ORDERED: NURSING VERBAL MED ORDER ONE (22:30)
[2017-03-08] MEDS ORDERED: METFORMIN HCL 500 MG TABCR PO ONE (23:00)
[2017-03-08] MEDS ORDERED: LACTATED RINGER'S 1000ML 500 ML IV PRN (23:09)
[2017-03-08] MEDS ORDERED: OXYTOCIN 30 UNITS/500ML NSS IV PRN (23:15)
--- NOTE | 2017-03-08 23:29 | HISTORY & PHYSICAL EXAMINATION ---
DATE OF ADMISSION: 03/08/2017 CHIEF COMPLAINT: Type 2 insulin-dependent diabetes at term . HISTORY OF PRESENT ILLNESS: The patient is a 36-year-old 2, para 0 at 39 weeks gestation who is admitted to labor and delivery on the evening of 03/08/2017 for a scheduled induction of labor secondary to being insulin-dependent diabetic in . Her care has been uncomplicated otherwise. She was well controlled with an insulin pump throughout the . Her growth ultrasounds have been appropriate. Her care has also been complicated with hypothyroidism, which again was well controlled. PAST MEDICAL HISTORY: Significant for: 1. Previous miscarriage at age 19. 2. She has a history of asthma and uses an albuterol inhaler as needed and only used it once during the . 3. Type 2 diabetes which was diagnosed at age 32. 4. History of kidney stones, hypothyroidism, HSP vasculitis. PAST SURGICAL HISTORY: Significant for a D&E after her miscarriage at the age of 19. She had her wisdom teeth removed and lithotripsy for kidney stones at age 33. MEDICATIONS: Levothyroxine 100 mcg daily, 200 mcg every Monday; metformin 500 mg 2 pills in the a.m. and 2 pills in the p.m.; insulin pump. ALLERGIES: AMOXICILLIN, WHICH CAUSES SHORTNESS OF BREATH; TRAMADOL, WHICH CAUSES PRURITUS; MAGNESIUM SALICYLATE AND CLAVULANIC ACID WHICH CAUSES SEVERE SHORTNESS OF BREATH. LABS: Blood type is A positive, group B strep positive, rubella immune, hepatitis B surface antigen negative, RPR nonreactive, and HIV negative. PHYSICAL EXAMINATION: VITAL SIGNS: Blood pressure is 142/63, heart rate of 111, respiration rate of 18, temperature of 98.6. GENERAL: The patient is awake, alert and oriented x3. She is in no acute distress. HEART: Regular rate and rhythm. LUNGS: Clear to auscultation bilaterally. ABDOMEN: Gravid uterus, appropriate for gestational age. Bowel sounds present x4. EXTREMITIES: No clubbing, cyanosis or calf tenderness. VAGINAL EXAM: The patient is currently 2-3 cm, 50% effaced, and -3 station. heart tones are category 1 with no contractions. ASSESSMENT AND PLAN: She is a 36-year-old 2, para 0 at 39 weeks gestation, will be admitted to labor and delivery for a scheduled induction of labor secondary to insulin-dependent diabetes during . Will begin insulin drip per protocol and consult pharmacy for management. Will begin Cervidil for labor induction and vancomycin once she is in labor for GBS prophylaxis. [facility]
[2017-03-09] MEDS: LEVOTHYROXINE 100 MCG TAB PO SCH (07:58)
[2017-03-09] MEDS ORDERED: METFORMIN HCL 500 MG TABCR PO SCH (08:00)
[2017-03-09] MEDS ORDERED: DINOPROSTONE 10 MG INSERT PV ONE (10:00)
[2017-03-09] MEDS: NovoLOG INSULIN PUMP SCH (12:00)
--- NOTE | 2017-03-09 15:11 | Pharmacy Progress Note ---
Glycemic Control Intl Consult Date of Service Mar 09, 2017. Scope Glycemic Pharmacist consulted by Dr Hurt on 03/09/17 for glycemic control and to write orders per [facility] inpatient glycemic control protocol Objective Weight (Kilograms): 84.100 Accuchecks BSG (last 24hrs): Test 03/08/17 23:02 Bedside Glucose 98 mg/dl (70-90) Laboratory Data (last 24hrs) Test 03/08/17 20:33 White Blood Count 8.01 K/uL Recent Pertinent Medications Outpatient Anti-diabetic Regimen: * Metformin ER 1000 mg PO BID * Novolog insulin pump (settings per patient) * Basal rate: - 0000 - 0500 = 1.25 units/hr - 0500 - 2100 = 1.35 units/hr - 2100 - 2359 = 1.25 units/hr * A1c = unknown The patient is currently receiving: * Novolog insuliin pump per home settings * Oral Agents: on hold Assessment & Plan ASSESSMENT: * 36 yr old T2DM female admitted for labor induction. * Patient is currently being maintained on her home insulin pump. * Patient can remain on insulin pump during labor induction and latent phase - patient will likely require reduction in basal rates during this time (50% decrease compared to home settings). * Once active labor starts, insulin administration should be changed to IV insulin infusion to avoid hypoglycemia. * IV insulin orders have been entered on patients profile for when use is needed * Above was discussed with patients nurse * Pt is to manage BSGs with insulin pump (expect for during ACTIVE labor). * RN will have patient read and sign agreement [id number] Insulin Pump Therapy Patient Agreement. * RN will provide and explain form [id number] Flowsheet for Patient * Patient will document their insulin dose given on NS-824 which is kept at the bedside, available to caregivers upon request, and which becomes part of the permanent medical record. PLAN FOR INPATIENT GLYCEMIC CONTROL: * Holding outpatient oral diabetes medications * During labor induction/latent phase: * Novolog insulin pump * Consider reducing basal rate by 50% as BSG starts to trend down and utilize bolus doses from pump to correct hyperglycemia * During active labor: * IV insulin infusion per L&D protocol * Post : * Resume Novolog insulin pump at 50% of home basal rates * Please note that the plan above was derived based on current level of insulin resistance and hospital stress. These recommendations are appropriate for inpatient admission only. Plan of care upon discharge will need to be reassessed to avoid potential outpatient hypo/hyperglycemia. Thank you.
[2017-03-09] MEDS ORDERED: INSULIN ASPART 100 UNITS/ML VIAL SC PRN (15:15)
[2017-03-09] MEDS ORDERED: GLUCOSE 40% GEL 15 GM TUBE PO PRN (15:15)
[2017-03-09] MEDS ORDERED: DEXTROSE 50% 50 ML SYR IV PRN (15:15)
[2017-03-09] MEDS ORDERED: GLUCOSE 10 TABS/TUBE PO PRN (15:15)
[2017-03-09] MEDS ORDERED: GLUCAGON FOR INJ 1 MG VIAL SQ PRN (15:15)
[2017-03-09] MEDS ORDERED: LACTATED RINGER'S 1000ML 500 ML IV PRN (23:25)
[2017-03-09] MEDS ORDERED: OXYTOCIN 30 UNITS/500ML NSS IV PRN (23:30)
[2017-03-10] MEDS ORDERED: VANCOMYCIN INJ 1,000 MG in SODIUM CHLORIDE 0.9% 250ML 250 ML IV SCH ×2
[2017-03-10] MEDS: DEXTROSE 5% 1000ML 1,000 ML IV SCH ×3 (01:16→15:31)
[2017-03-10] MEDS: LACTATED RINGER'S 1000ML 1,000 ML IV SCH ×3 (01:21→21:11)
[2017-03-10] MEDS: VANCOMYCIN INJ 1,000 MG in SODIUM CHLORIDE 0.9% 250ML 250 ML IV SCH ×2 (01:22→13:38)
[2017-03-10] MEDS ORDERED: PROMETHAZINE HCL INJ 12.5 MG in SODIUM CHLORIDE 0.9% 50ML 50 ML IV STA (01:57)
[2017-03-10] MEDS ORDERED: MoRPHine SULFATE 10 MG/ML CARP/VIAL SQ STA (01:57)
[2017-03-10] MEDS ORDERED: NURSING VERBAL MED ORDER ONE (05:45)
[2017-03-10] MEDS ORDERED: BUTORPHANOL TARTRATE 1 MG/ML VIAL IV STA (05:53)
[2017-03-10 07:07] LABS: ESTIMATED AVERAGE GLUCOSE 105 mg/dl; HA1C FLAG Normal (Normal)
[2017-03-10] MEDS: LEVOTHYROXINE 100 MCG TAB PO SCH (07:30)
[2017-03-10] MEDS ORDERED: BUPIVACAINE 0.25% 30 ML VIAL ONE (08:04)
[2017-03-10] MEDS ORDERED: FENTANYL 2MCG/ML ROPIV 1.25MG/ML 100ML BAG EPI ONE (08:05)
[2017-03-10] MEDS ORDERED: FENTANYL CITRATE INJ 50 MCG/1 ML 2 ML VIAL ONE ×2 (08:05→23:29)
[2017-03-10] MEDS ORDERED: EpHEDrine SULFATE INJ 50 MG/ML AMP ONE (08:05)
[2017-03-10] MEDS ORDERED: NALOXONE HCL INJ 1 MG in SODIUM CHLORIDE 0.9% 1000ML 1,000 ML IV PRN (09:22)
[2017-03-10] MEDS ORDERED: LACTATED RINGER'S 1000ML 500 ML IV PRN (09:22)
[2017-03-10] MEDS ORDERED: NALOXONE HCL INJ 0.4 MG/1 ML VIAL/CARP IV PRN (09:30)
[2017-03-10] MEDS ORDERED: NALBUPHINE HCL INJ 10 MG/ML AMP IV PRN (09:30)
[2017-03-10] MEDS ORDERED: ONDANSETRON INJ 2 MG/ML 2 ML VIAL IV PRN (09:30)
[2017-03-10] MEDS ORDERED: DiphenhydrAMINE HCL 50 MG/ML VIAL IV PRN (09:30)
[2017-03-10] MEDS ORDERED: EpHEDrine SULFATE INJ 50 MG/ML AMP IV PRN (09:30)
--- NOTE | 2017-03-10 11:14 | Pharmacy Progress Note ---
Glycemic Control Progress Note Date of Service Mar 10, 2017. Scope Glycemic Pharmacist consulted for glycemic control to write orders per [facility] inpatient glycemic control protocol. Objective Accuchecks BSG (last 24hrs): Test 03/09/17 23:48 03/10/17 02:18 03/10/17 03:10 03/10/17 04:17 Bedside Glucose 65 mg/dl (70-90) 190 mg/dl (70-90) 140 mg/dl (70-90) 121 mg/dl (70-90) Test 03/10/17 05:30 03/10/17 06:37 03/10/17 09:31 03/10/17 10:34 Bedside Glucose 102 mg/dl (70-90) 91 mg/dl (70-90) 97 mg/dl (70-90) 91 mg/dl (70-90) HbA1c: Test 03/10/17 06:14 Hemoglobin A1c 5.3 % (4.5-5.6) Recent Pertinent Medications The patient is currently receiving: * IV insulin infusion * Novlog pump on hold Outpatient Anti-Diabetic Meds Novolog Pump + Metformin PO Assessment & Plan ASSESSMENT: * 36 yr old T2DM female admitted for labor induction. * Patient is currently being maintained on IV insulin pump as active labor has started * D5 also running at 100 cc/hr * Continue IV insulin infusion until patient delivers * Upon deliver, D/C infusion and Dextrose (as long as patient eating) * Restart home Novolog Pump with basal rates reduced by 50% * This is just a starting point, patient need further reduction -- monitor BSGs every 2 hours PLAN FOR INPATIENT GLYCEMIC CONTROL: * Hold outpatient oral diabetes medications * During active labor: * IV insulin infusion per L&D protocol * Post : * Resume Novolog insulin pump at 50% of home basal rates * Please note that the plan above was derived based on current level of insulin resistance and hospital stress. These recommendations are appropriate for inpatient admission only. Plan of care upon discharge will need to be reassessed to avoid potential outpatient hypo/hyperglycemia. Thank you.
[2017-03-10] MEDS: NovoLOG INSULIN PUMP SCH (12:00)
[2017-03-10] MEDS: FENTANYL 2MCG/ML ROPIV 1.25MG/ML 100ML BAG EPI PRN ×2 (15:49→19:07)
[2017-03-10] MEDS ORDERED: LACTATED RINGER'S 1000ML 1,000 ML IV SCH (23:01)
[2017-03-10] MEDS ORDERED: CLINDAMYCIN IV 900 MG in DEXTROSE 5% 100ML 100 ML IV STA (23:11)
[2017-03-10] MEDS ORDERED: GENTAMICIN INJ 120 MG in DEXTROSE 5% 100ML 100 ML IV STA (23:12)
[2017-03-10] MEDS ORDERED: CITRIC ACID/SODIUM CITRATE 15 ML UDC PO ONE (23:15)
--- NOTE | 2017-03-10 23:26 | History & Physical Bridge Note ---
H&P Re-Evaluation Bridge Note: I have examined the patient, reviewed the History & Physical and in the interval since the performance of the History & Physical I have noted the following changes of clinical significance: No changes noted
[2017-03-10] MEDS ORDERED: MORPHINE SULFATE PF 2MG/2ML SYR ONE (23:30)
[2017-03-10] MEDS ORDERED: OXYTOCIN INJ 10 UNITS/ML VIAL ONE ×2 (23:30→23:59)
[2017-03-10] MEDS ORDERED: LIDOCAINE/EPINEPHRINE 2% 1:200,000 20 ML SDV ONE (23:32)
[2017-03-11] VITALS (12 sets, daily range): BP systolic 95–120; BP diastolic 61–72; PULSE 93–96; TEMP 36.6–36.8; O2SAT 96–98
[2017-03-11] MEDS ORDERED: LIDOCAINE/EPINEPHRINE 2% 1:200,000 20 ML SDV ONE (00:06)
[2017-03-11] MEDS ORDERED: ONDANSETRON INJ 2 MG/ML 2 ML VIAL ONE (00:17)
[2017-03-11] MEDS ORDERED: OXYTOCIN INJ 10 UNITS/ML VIAL ONE (00:27)
[2017-03-11] MEDS ORDERED: PHENYLEPHRINE HCL INJ 10 MG/ML VIAL ONE (00:36)
[2017-03-11] MEDS ORDERED: METHYLERGONOVINE MALEATE 0.2 MG/ML AMP ONE (00:36)
[2017-03-11] MEDS ORDERED: SUPERCREAM 0.870 % 15GM JAR EXT PRN (01:30)
[2017-03-11] MEDS ORDERED: PROMETHAZINE HCL INJ 25 MG in SODIUM CHLORIDE 0.9% 50ML 50 ML IV PRN (01:30)
[2017-03-11] MEDS ORDERED: SENNA 8.6 MG TAB PO PRN (01:30)
[2017-03-11] MEDS ORDERED: HYDROCORTISONE ACETATE 25 MG SUPP PR PRN (01:30)
[2017-03-11] MEDS ORDERED: MAGNESIUM HYDROXIDE SUSP 30 ML UDC PO PRN (01:30)
[2017-03-11] MEDS ORDERED: OXYCODONE/ACETAMINOPHEN 5-325 TAB PO PRN (01:30)
[2017-03-11] MEDS ORDERED: LANOLIN OINT EXT PRN ×2 (01:30)
[2017-03-11] MEDS ORDERED: BENZOCAINE 20% AER SPR 82.5 GM CAN EXT PRN (01:30)
[2017-03-11] MEDS ORDERED: PROMETHAZINE HCL INJ 12.5 MG in SODIUM CHLORIDE 0.9% 50ML 50 ML IV STA (01:37)
[2017-03-11] MEDS ORDERED: NO NARCOTICS OR SEDATIVES SCH (01:45)
[2017-03-11] MEDS ORDERED: KETOROLAC TROMETHAMINE 30 MG/ML VIAL IV. PRN (01:45)
[2017-03-11] MEDS ORDERED: DC INTRASPINAL MORPHINE PRN (01:45)
[2017-03-11] MEDS ORDERED: MoRPHine SULFATE 2 MG/ML CARP IV PRN (01:45)
[2017-03-11] MEDS ORDERED: MEPERIDINE HCL 25 MG/ML CARP IV PRN (01:45)
[2017-03-11] MEDS ORDERED: MoRPHine SULFATE PF 1 MG/ML 10 ML AMP/VIAL EPI PRN (01:45)
[2017-03-11] MEDS ORDERED: CONTINUE MEDICATION ONE (01:45)
--- NOTE | 2017-03-11 01:50 | Anesthesiology Progress Note ---
Anesthesia Post Op Note Date & Time Mar 11, 2017 at 01:49 Vital Signs Pain Intensity: 1 Notes Mental Status: alert / awake / arousable, participated in evaluation Pt Amnestic to Procedure: Yes Nausea / Vomiting: adequately controlled, improving with treatment Pain: adequately controlled Airway Patency, RR, SpO2: stable & adequate BP & HR: stable & adequate Hydration State: stable & adequate Anesthetic Complications: no major complications apparent
--- NOTE | 2017-03-11 02:35 | Anesthesiology Progress Note ---
Anesthesia Post Op Note Date & Time Mar 11, 2017 at 02:34 Vital Signs Pain Intensity: 1 Notes Mental Status: alert / awake / arousable, participated in evaluation Pt Amnestic to Procedure: Yes Nausea / Vomiting: adequately controlled, improving with treatment Pain: adequately controlled Airway Patency, RR, SpO2: stable & adequate BP & HR: stable & adequate Hydration State: stable & adequate Neuraxial Anesthesia: was administered, sensory block is resolving Anesthetic Complications: no major complications apparent
[2017-03-11] MEDS ORDERED: OXYTOCIN INJ 20 UNITS in LACTATED RINGER'S 1000ML 1,000 ML IV SCH (03:54)
[2017-03-11] MEDS: DEXTROSE 5% 1000ML 1,000 ML IV SCH (06:49)
[2017-03-11] MEDS: LEVOTHYROXINE 100 MCG TAB PO SCH (07:31)
[2017-03-11] MEDS: SIMETHICONE 80 MG CHEW PO SCH ×4 (09:59→19:44)
[2017-03-11] MEDS: LACTATED RINGER'S 1000ML 1,000 ML IV SCH (12:51)
[2017-03-11] MEDS: DOCUSATE SODIUM 100 MG CAP PO SCH ×2 (15:38→19:44)
[2017-03-11] MEDS: FERROUS SULFATE 325 MG TAB PO SCH (15:39)
[2017-03-11] MEDS: PRENATAL VITAMIN TAB PO SCH (15:39)
[2017-03-11] MEDS ORDERED: ONDANSETRON INJ 2 MG/ML 2 ML VIAL IV PRN (18:30)
[2017-03-11] MEDS ORDERED: DiphenhydrAMINE HCL 50 MG/ML VIAL IV PRN (18:30)
[2017-03-11] MEDS: OXYCODONE/ACETAMINOPHEN 5-325 TAB PO PRN (18:54)
[2017-03-11] MEDS: IBUPROFEN 600 MG TAB PO PRN (18:55)
[2017-03-12 00:10] VITALS: BP 98/81; PULSE 81; TEMP 36.4
[2017-03-12 03:10] VITALS: BP 107/76; PULSE 75; TEMP 36.6
[2017-03-12] MEDS: IBUPROFEN 600 MG TAB PO PRN ×3 (05:30→21:01)
[2017-03-12] MEDS: OXYCODONE/ACETAMINOPHEN 5-325 TAB PO PRN ×3 (05:31→21:02)
[2017-03-12 06:59] LABS: BASO % 0.1 %; BASO ABS # 0.01 K/uL (0-0.2); EOS % 0.5 %; HEMATOCRIT 21.2 % (37-47); IG% 0.1 %; LYMPH % 21.1 %; LYMPH ABS # 1.87 K/uL (1.2-3.4); MEAN CELL VOLUME 86.5 fL (80-100); MEAN CORPUSCULAR HEMOGLOBIN 28.6 pg (25-34); MEAN PLATELET VOLUME 11.7 fL (7.4-10.4); MONO % 6.6 %; NEUT % 71.6 %; PLATELET COUNT 123 K/uL (130-400); RED BLOOD COUNT 2.45 M/uL (4.2-5.4); WHITE BLOOD COUNT 8.85 K/uL (4.8-10.8)
[2017-03-12 07:40] VITALS: BP 105/69; PULSE 79; TEMP 36.5
[2017-03-12] MEDS: LEVOTHYROXINE 100 MCG TAB PO SCH (07:44)
[2017-03-12 08:07] LABS: COMPLETE YES
[2017-03-12] MEDS ORDERED: PRENATAL VITAMIN TAB PO STA (08:19)
--- NOTE | 2017-03-12 08:25 | OB/GYN Progress Note ---
LEATHER REPAIRER Progress Note Date of Service: Mar 12, 2017. Patient is seen and examined. She feels well, no complaints. Pain is under control with oral meds. Ambulating without dizziness Voiding without difficulty Tolerating regular/ADA diet with out N&V Flatus + BM NEG Bleeding is minimal No fever/ chills/ CP/ SOB/ N&V/ Leg pain Breast feeding without problems Date Time Temp Pulse Resp B/P (MAP) Pulse Ox O2 Delivery O2 Flow Rate FiO2 03/12/17 03:10 36.6 75 18 107/76 (86) Room Air 03/12/17 00:10 36.4 81 18 98/81 (87) Room Air 03/12/17 00:10 Room Air 03/11/17 19:55 36.8 96 20 95/61 (72) 96 Room Air 03/11/17 17:30 16 98 03/11/17 16:30 16 97 03/11/17 15:30 98 Room Air 03/11/17 15:30 16 98 03/11/17 15:25 36.8 93 14 98/66 (77) 98 Room Air 03/11/17 15:00 18 97 03/11/17 14:00 18 98 03/11/17 13:48 36.6 96 18 120/72 (88) 98 Room Air 03/11/17 13:00 18 98 03/11/17 12:00 18 97 03/11/17 11:00 18 98 03/11/17 10:00 97 Room Air 03/11/17 10:00 18 97 Test 02/28/17 12:30 02/28/17 12:49 02/28/17 15:00 03/01/17 15:35 Urine Color YELLOW Urine Appearance CLOUDY Urine pH 6.0 Urine Specific [place] 1.023 Urine Protein 1+ Urine Glucose (UA) NEG Urine Ketones 1+ H Urine Occult Blood NEG Urine Nitrite NEG Urine Bilirubin NEG Urine Urobilinogen NEG Urine Leukocyte Esterase SMALL H Urine WBC (Auto) 10-30 H Urine RBC (Auto) 5-10 H Urine Hyaline Casts (Auto) 0 Urine Epithelial Cells (Auto) >30 H Urine Bacteria (Auto) 1+ H Urine Renal Epithelial Cells Urine Pathogenic Casts Urine Random Creatinine 140.0 Urine Random Total Protein 67.5 H Urine Protein/Creatinine Ratio 0.5 H White Blood Count 6.88 Red Blood Count 3.99 L Hemoglobin 11.1 L Hematocrit 33.9 L Mean Corpuscular Volume 85.0 Mean Corpuscular Hemoglobin 27.8 Mean Corpuscular Hemoglobin Concent 32.7 Platelet Count 141 Mean Platelet Volume 12.5 H Neutrophils (%) (Auto) 69.6 Lymphocytes (%) (Auto) 23.1 Monocytes (%) (Auto) 6.4 Eosinophils (%) (Auto) 0.4 Basophils (%) (Auto) 0.1 Neutrophils # (Auto) 4.78 Lymphocytes # (Auto) 1.59 Monocytes # (Auto) 0.44 Eosinophils # (Auto) 0.03 Basophils # (Auto) 0.01 RDW Standard Deviation 48.2 H RDW Coefficient of Variation 15.6 H Immature Granulocyte % (Auto) 0.4 Immature Granulocyte # (Auto) 0.03 H Prothrombin Time 9.8 Prothrombin Time INR 0.9 PTT 26.6 Partial Thromboplastin Ratio 1.0 Sodium Level 138 Potassium Level 4.0 Chloride Level 105 Carbon Dioxide Level 22 Anion Gap 11.0 Blood Urea Nitrogen 11 Creatinine 0.44 L 0.53 L Estimated GFR () > 150.0 Estimated GFR (Non- 129.9 BUN/Creatinine Ratio 24.1 H Random Glucose 73 Uric Acid 6.1 Calcium Level 9.2 Total Bilirubin 0.3 Direct Bilirubin < 0.1 Aspartate Amino Transferase (AST) 17 Alanine Aminotransferase (ALT) 15 Alkaline Phosphatase 170 H Lactate Dehydrogenase 146 Total Protein 7.3 Albumin 2.6 L Globulin 4.7 H Albumin/Globulin Ratio 0.6 L Urine Collection Time 24 Urine Total Volume 600 Urine Creatinine 81.0 Urine Creatinine 24 Hour 0.5 L Urine Creatinine Clearance 24 Hour 62.4 L Test 03/08/17 20:33 03/10/17 06:14 03/11/17 06:22 03/11/17 07:33 White Blood Count 8.01 Red Blood Count 3.95 L Hemoglobin 11.2 L Hematocrit 34.1 L Mean Corpuscular Volume 86.3 Mean Corpuscular Hemoglobin 28.4 Mean Corpuscular Hemoglobin Concent 32.8 RDW Standard Deviation 50.0 H RDW Coefficient of Variation 15.7 H Platelet Count 149 Mean Platelet Volume 11.9 H Estimated Average Glucose 105 Hemoglobin A1c 5.3 POC Glucose 139 H 139 H Test 03/11/17 08:29 03/12/17 06:35 POC Glucose 131 H White Blood Count 8.85 Red Blood Count 2.45 L Hemoglobin 7.0 L Hematocrit 21.2 L Mean Corpuscular Volume 86.5 Mean Corpuscular Hemoglobin 28.6 Mean Corpuscular Hemoglobin Concent 33.0 Platelet Count 123 L Mean Platelet Volume 11.7 H Neutrophils (%) (Auto) 71.6 Lymphocytes (%) (Auto) 21.1 Monocytes (%) (Auto) 6.6 Eosinophils (%) (Auto) 0.5 Basophils (%) (Auto) 0.1 Neutrophils # (Auto) 6.34 Lymphocytes # (Auto) 1.87 Monocytes # (Auto) 0.58 Eosinophils # (Auto) 0.04 Basophils # (Auto) 0.01 RDW Standard Deviation 50.8 H RDW Coefficient of Variation 15.9 H Immature Granulocyte % (Auto) 0.1 Immature Granulocyte # (Auto) 0.01 Red Blood Cell Morphology Unremarkable PE: General: Alert, orientedx3, NAD CVS: S1S2 RRR Lungs; CTAB Abd: soft, NT, fundus firm, below Umbilicus Incision: Clean, dry, intact Perineum intact, Lochia rubra minimal Ext; NT, no edema AP: 36 yo s/p C Section, pod# 1 VSS Afebrile doing well Anemic: asymptomatic Discussed blood transfusion vs oral iron therapy Plan to repeat H&H at noon Iron 2 times a day Type II DM: on insulin pump and will start her Metformin Continue routine postop care Encourage ambulation, PO intake All questions were answered
[2017-03-12] MEDS: SIMETHICONE 80 MG CHEW PO SCH ×4 (08:32→19:49)
[2017-03-12] MEDS: FERROUS SULFATE 325 MG TAB PO SCH ×2 (08:32→19:50)
[2017-03-12] MEDS: PRENATAL VITAMIN TAB PO SCH (08:32)
[2017-03-12] MEDS: DOCUSATE SODIUM 100 MG CAP PO SCH ×2 (08:33→19:50)
[2017-03-12] MEDS ORDERED: GLCSR500 PO (09:32)
[2017-03-12] MEDS ORDERED: NORE0.3527 PO (09:32)
[2017-03-12] MEDS ORDERED: FRRS300 PO (09:32)
[2017-03-12] MEDS ORDERED: OXYC-57 PO (09:32)
[2017-03-12] MEDS: METFORMIN HCL 500 MG TABCR PO SCH ×2 (09:49→17:46)
[2017-03-12 11:30] LABS: HEMATOCRIT 21.9 % (37-47)
[2017-03-12] MEDS ORDERED: MISC-696 (12:56)
[2017-03-12 16:30] VITALS: BP 136/82; PULSE 83; TEMP 36.7
[2017-03-12] MEDS ORDERED: BISACODYL 5 MG TABEC PO ONE (22:00)
[2017-03-12 23:30] VITALS: BP 122/84; PULSE 97; TEMP 36.7; O2SAT 99
[2017-03-13] MEDS ORDERED: BISACODYL 10 MG SUPP PR PRN (01:30)
--- NOTE | 2017-03-13 07:11 | OPERATIVE REPORT ---
DATE OF OPERATION: 03/11/2017 INDICATION FOR PROCEDURE: This is a 36-year-old pregestational diabetic at term, who was induced for labor because of a history of diabetes. She received Cervidil x24 hours, was started on Pitocin. She had artificial rupture of membranes. She dilated to 4.5 cm and for 12 hours the cervical exam was unchanged. Decision was therefore made to proceed to section for failure to progress. PREOPERATIVE DIAGNOSES: 1. at term. 2. Pregestational diabetes. 3. Failed induction x3 days. 4. Failure to progress/arrest of labor. POSTOPERATIVE DIAGNOSES: Same. PROCEDURE: Primary section. ANESTHESIA: Epidural. INTRAVENOUS FLUIDS: 1900. ESTIMATED BLOOD LOSS: 700. URINE OUTPUT: 200 mL of clear urine at end of procedure. PATHOLOGY: Placenta and cord blood. FINDINGS: Live male in occiput anterior presentation. Weight and Apgars in the pediatric record. Uterus and adnexa as well as pelvis appeared unremarkable. COMPLICATIONS: None. DRAINS: Chou catheter. DESCRIPTION OF PROCEDURE: The patient was taken to the operating room where she was prepped and draped in normal sterile fashion. Timeout was called. A Pfannenstiel incision was made and carried down to the fascia with a scalpel. Fascia was incised in the midline and extended laterally on both sides. The rectus abdominus muscle was sharply dissected off the fascia superiorly and inferiorly. Peritoneum was identified and entered sharply. Once inside the abdomen, an Vik retractor was placed for retraction. The vesicouterine peritoneum was sharply dissected off the lower segment of the uterus. A low transverse incision was made and extended laterally to both sides using bandage scissors. 's head was delivered. Cord was clamped and cut and handed over to the awaiting pediatric team. Details of the infant's information is in the pediatric record. Placenta was manually removed. Uterus was exteriorized and cleared of all clots and debris. Uterus was closed in 2 layers using 0 Vicryl. Copious amount of irrigation was used to irrigate the abdomen. Uterus was returned to the abdominal cavity, there was good hemostasis at this point. The vesicouterine peritoneum was reapproximated using plain suture. The Vik retractor was removed at this point. Peritoneum was closed in a running fashion using plain suture. Rectus abdominis muscle was reapproximated using plain suture in a [id number] manner. The fascia was closed in a running fashion using PDS suture. The subQ space was irrigated and closed with plain suture. Skin was closed with janell. All instruments are removed from the abdomen and accounted for x2. Baby and mother are doing well in recovery. I attest to the content of the Intraoperative Record and any orders documented therein. Any exception s are noted below.
[2017-03-13 07:20] VITALS: BP 119/80; PULSE 68; TEMP 36.6; O2SAT 99
[2017-03-13 07:24] LABS: HEMATOCRIT 20.9 % (37-47)
[2017-03-13] MEDS: LEVOTHYROXINE 100 MCG TAB PO SCH (07:41)
[2017-03-13] MEDS: NovoLOG INSULIN PUMP SCH ×2 (08:00→16:45)
[2017-03-13] MEDS: PRENATAL VITAMIN TAB PO SCH (08:29)
[2017-03-13] MEDS: DOCUSATE SODIUM 100 MG CAP PO SCH ×2 (08:29→20:00)
[2017-03-13] MEDS: METFORMIN HCL 500 MG TABCR PO SCH ×2 (08:29→17:21)
[2017-03-13] MEDS: FERROUS SULFATE 325 MG TAB PO SCH ×2 (08:30→20:00)
[2017-03-13] MEDS: SIMETHICONE 80 MG CHEW PO SCH ×4 (08:30→20:00)
--- NOTE | 2017-03-13 11:08 | Surgery Progress Note ---
Surgery Progress Note Date of Service Mar 13, 2017. Subjective Post OP Day: 2 + feeling well, + ambulating, + bowel movement, + flatus, + pain controlled, + diet Objective Vital Signs: Date Time Temp Pulse Resp B/P (MAP) Pulse Ox O2 Delivery O2 Flow Rate FiO2 03/13/17 07:45 Room Air 03/13/17 07:20 36.6 68 18 119/80 (93) 99 Room Air 03/12/17 23:30 36.7 97 18 122/84 (97) 99 Room Air 03/12/17 23:30 99 Room Air 03/12/17 16:30 36.7 83 18 136/82 (100) Room Air 03/12/17 16:30 Room Air General Appearance: no apparent distress Abdomen: non tender, non distended, soft Incision(s): clean, dry Extremities: non-tender, normal inspection, no calf tenderness Laboratory Results: Results Past 24 Hours Test 03/12/17 11:17 03/13/17 06:27 Range/Units Hemoglobin 7.1 7.0 12.0-16.0 g/dL Hematocrit 21.9 20.9 37-47 % Assessment & Plan regular diet POD#2 doing well tent d/c in AM
[2017-03-13] MEDS: IBUPROFEN 600 MG TAB PO PRN (14:28)
[2017-03-13] MEDS: OXYCODONE/ACETAMINOPHEN 5-325 TAB PO PRN (14:29)
[2017-03-13 16:30] VITALS: BP 134/85; PULSE 87; TEMP 36.6; O2SAT 100
[2017-03-14] MEDS: IBUPROFEN 600 MG TAB PO PRN ×2 (01:47→11:31)
[2017-03-14] MEDS: OXYCODONE/ACETAMINOPHEN 5-325 TAB PO PRN ×2 (01:49→11:31)
--- NOTE | 2017-03-14 07:17 | Discharge Instructions ---
Discharge Instructions Date of Service Mar 14, 2017. Admission Reason for Admission: Induction Discharge Discharge Diagnosis / Problem: S/p section Discharge Goals Goal(s): Routine recovery after Medications Continue Dispensed Medications: supercream, dermaplast, tucks, lansinoh Activity Recommendations Activity Limitations: per Instructions/Follow-up section . Instructions / Follow-Up Instructions / Follow-Up ACTIVITY RECOMMENDATIONS: * Gradual return to full activity over the next 2-3 weeks. * No lifting - nothing heavier than baby over the next 2-3 weeks. * Do not engage in vigorous exercise, sexual activity or sports until cleared by your physician. * Do not drive or operate any motorized equipment until cleared by your physician. * You may shower/bathe daily. BREAST CARE: If you are not breast feeding: * Wear a supportive bra 24 hours a day for one to two weeks. * Avoid stimulating your breasts and nipples as much as possible during the first few weeks after delivery. * When taking a shower, have the warm water hit your back, not breasts. * When your breasts feel full, apply ice packs. Usually three to four times a day helps ease the discomfort. * Take a mild pain medication (Tylenol/Motrin) when you are uncomfortable. If breast feeding: * Use breast milk to lubricate nipples. Lansinoh cream may be used for sore nipples. You do not need to remove cream prior to breast feeding. If using a different brand of cream, check the label for directions regarding removal of cream prior to nursing. * Wear a supportive bra. * If having problems with breasts or breast feeding, call a health management consultant or your health care provider. OVER THE COUNTER MEDICATION: * For discomfort or pain, you may use Acetaminophen (Tylenol), Ibuprofen (Advil ), or Naproxen (Aleve) following the package directions. * For constipation you may use Colace following the package directions. SPECIAL CARE INSTRUCTIONS: When you are discharged from the hospital, it is important for you to follow the instructions listed below: * During the first week at home, you should be able to care for yourself and your baby. In addition, the usual light household activities are encouraged. * Limit your activities to the way you feel. Do not try to clean the house or move furniture. Be sensible. * If you actively engage in sports and have done so up until the time of your delivery, you may resume these activities as soon as you feel able. This may take up to one month or even longer. Use good judgment. * Continue to take your vitamins for at least six weeks after the of your baby. * Your diet need not be limited unless you were on a special diet before your delivery. Breast-feeding mothers need around 2500 calories per day and at least 64-80 ounces of fluid per day (8 to 10 glasses). * You should eat foods from the four major food groups. Crash diets or fad diets are to be avoided. Eating lean meats, fresh fruits and vegetables, low-fat dairy products, high fiber foods and a regular exercise program, will help you get back to your pre- weight without putting your health at risk. * Constipation is sometimes a problem after delivery. Take a mild laxative as needed. If breast feeding, Milk of Magnesia is acceptable to use. You may use a suppository or Fleets enema if no episiotomy. * A daily shower or tub bath is suggested. Be sure to thoroughly and gently dry the perineum. * A bloody vaginal discharge will usually continue until around four weeks post . A small amount of bleeding may continue for as long as six weeks. Vaginal discharge changes from the bright red bleeding after delivery to pink then brownish and finally yellowish-pink before becoming white and disappearing. * Bleeding may increase with activity. Your first period may come in 4-8 weeks. If you are breast feeding, your period may be delayed even longer. * [place] (sex) can begin whenever both you and your partner feel comfortable and do not have any form of genital infection. It is recommended that you wait at least six weeks for internal and external healing to occur. If you have questions, please talk to your health care practitioner. A condom should be used to prevent infection and . * Foreplay, gentle intercourse and lubrication is very important the first several times to prevent pain. A water-based lubricant such as K-Y jelly or Astroglide may be used. * Tampons and/or Douching should be avoided until after six weeks check-up. * If you have RH negative blood and your baby is RH positive, you will receive RHOGAM by injection prior to discharge. The nurse will give you a card to keep with you that has the date and place that you received RHOGAM after delivery. * During your care, you had a Rubella screen done to check for the presence of rubella antibodies in your blood. If your test was negative, you will receive a Rubella vaccine prior to discharge. This vaccine may cause a fever, soreness at the injection site and flu-like symptoms. If these symptoms persist, notify your health care practitioner. is not advised for three months after a Rubella vaccine. * Verbalizes understanding of car seat law as reviewed with patient nursing. * Car Seat hand-out given and reviewed with patient by nursing. * Shaken baby information reviewed with patient by nursing. Call you doctor if: * Heavy bleeding (saturating several pads an hour) or passing clots the size of your fist. * A fever >101 degrees F (38.3 degrees C) on two occasions four hours apart and /or chills. * Unusual pain in the pelvic or vaginal areas. Pain should improve each day . * Call the doctor for any increased redness, drainage or swelling around the incision and any pain unrelieved by prescribed pain medication. * Any signs or symptoms of phlebitis (possible blood clots forming in the veins ): leg pain, warm, red or swollen area on leg. * "Baby Blues" lasting longer than two weeks. If you have any questions or concerns, call your health care practitioner at . FOLLOW-UP VISIT: * Incision check (staple removal) in 1 week. Please call doctor's office at to set up appointment. * Please call the office at to schedule a 6 week examination. It is important you keep this appointment. * It is important for you to make arrangements for either yearly or twice yearly check-ups thereafter. Current Hospital Diet Patient's current hospital diet: Diabetes Type 2 Diet Discharge Diet Recommended Diet: Regular OB Diet Procedures Procedures Performed: Primary Caesarean of Live male childx [id number] Pending Studies Studies pending at discharge: no Laboratory Results Hemoglobin A1c Test 03/10/17 06:14 Range/Units Estimated Average Glucose 105 mg/dl Hemoglobin A1c 5.3 4.5-5.6 % Medical Emergencies . Who to Call and When: Medical Emergencies: If at any time you feel your situation is an emergency, please call 911 immediately. . Non-Emergent Contact Non-Emergency issues call your: Primary Care Provider, [employer]aster Helper . . "Provider Documentation" section prepared by Zechariah Hurt. . VTE Core Measure Inpt VTE Proph given/why not?: Treatment not indicated
--- NOTE | 2017-03-14 07:19 | OB/GYN Progress Note ---
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 Subjective conversation w/ patient, physical exam Ambulation: ambulating normally Voiding: no voiding problems Passing Gas: Yes Diet Tolerance: Regular Diet Lochia: Small Pain: 2/10 Notes: Doing well, no concerns. Pain well controlled. Tolerating regular diet, +flatus , +BM. Ambulating without difficulty. Would like to go home today. Objective Vital Signs Date Time Temp Pulse Resp B/P (MAP) Pulse Ox O2 Delivery O2 Flow Rate FiO2 03/13/17 16:30 Room Air 03/13/17 16:30 36.6 87 16 134/85 (101) 100 Room Air 03/13/17 07:45 Room Air 03/13/17 07:20 36.6 68 18 119/80 (93) 99 Room Air Physical Exam General Appearance: WELL-APPEARING Respiratory/Chest: chest non-tender, lungs clear Cardiovascular: regular rate, rhythm Abdomen: normal bowel sounds, soft Fundus: Firm Incision Description: Clean, Dry & Intact Extremities: normal range of motion, non-tender, no calf tenderness Assessment and Plan Post-Op Day Number: 3 Continue Routine Care: -D/C home today -F/U in 1 week for incision check
[2017-03-14] MEDS: LEVOTHYROXINE 100 MCG TAB PO SCH (07:33)
[2017-03-14 07:45] VITALS: BP 135/89; PULSE 86; TEMP 36.4; O2SAT 96
[2017-03-14] MEDS: PRENATAL VITAMIN TAB PO SCH (08:27)
[2017-03-14] MEDS: FERROUS SULFATE 325 MG TAB PO SCH (08:27)
[2017-03-14] MEDS: DOCUSATE SODIUM 100 MG CAP PO SCH (08:27)
[2017-03-14] MEDS: METFORMIN HCL 500 MG TABCR PO SCH (08:28)
[2017-03-14] MEDS: NovoLOG INSULIN PUMP SCH ×2 (08:28→12:00)
[2017-03-14] MEDS: SIMETHICONE 80 MG CHEW PO SCH ×2 (08:28→11:30)
[2017-03-14 13:10] VITALS: BP_DIAS 89; PULSE 86; TEMP 36.4
--- NOTE | 2017-03-20 19:05 | DISCHARGE SUMMARY ---
HISTORY OF PRESENT ILLNESS: This is a 36-year-old pregestational diabetic patient at term who was induced for labor because of history of diabetes. Her induction started on 03/08/2017. She received Cervidil x24 hours and was started on Pitocin. She had artificial rupture of membranes. She dilated to 4.5 cm and for 12 hours, the cervical exam was unchanged. On 03/11/2017, decision was therefore made to proceed with section for failure to progress. She went on to deliver by a live infant male, weighing 3370 grams, was 7 and 9. Details of the surgery are in the surgical note. Details of the pediatric information are in the pediatric records as well. The patient did well postoperatively. She met all milestones for day 1 and day 2. She was therefore discharged home in stable condition on day 3. Her Chou was removed. She was able to ambulate, tolerate p.o. food and meds. She was discharged home in stable condition on 03/14/2017. PAST MEDICAL HISTORY: 1. History of diabetes mellitus, on insulin pump. 2. History of nephrolithiasis. 3. History of hypothyroidism. 4. History of asthma. PAST SURGICAL HISTORY: 1. The patient has had a D&E at age 19. 2. Dental surgery. 3. Lithotripsy. ALLERGIES: THE PATIENT IS ALLERGIC TO AMOXICILLIN, TRAMADOL. Labs on 03/13/2017 show hemoglobin of 7, hematocrit of 20.9. PHYSICAL EXAMINATION: VITAL SIGNS: On 03/14/2017 show temperature of 36.4, pulse of 86, respirations of 20, blood pressure of 135/89. GENERAL: Well-developed, well-nourished white female in no acute distress. HEART: S1, S2, regular rhythm and rate. LUNGS: Clear to auscultation bilaterally. ABDOMEN: Nontender, nondistended, positive bowel sounds. Incision clean, dry and intact. EXTREMITIES: No cyanosis, clubbing or edema. CONDITION ON DISCHARGE: Stable. OPERATION: Primary section for failure to progress. DISCHARGE DIAGNOSES: 1. Postop section. 2. Diabetes mellitus, on insulin pump. PLAN ON DISCHARGE: The patient is discharged home with instructions regarding activity, diet, followup appointment and medication.
== END 2017-03-14 13:10 | disposition home or self-care (01) | DRG 766 ==
LOC: C.LD 19:24 → C.OBG 03-11 09:17
PROVIDERS: ADMIT Obstetrics & Gynecology; ATTEND Obstetrics & Gynecology
PROC: 3E0P7GC Introduction of Other Therapeutic Substance into Female Reproductive, Via Natural or Artificial Opening (ICD-10-PCS; principal; 2017-03-08)
PROC: 10D00Z1 Extraction of Products of Conception, Low, Open Approach (ICD-10-PCS; 2017-03-11)
DX: O24.12 Pre-existing type 2 diabetes mellitus, in childbirth (principal); O99.284 Endocrine, nutritional and metabolic diseases complicating childbirth; O76 Abnormality in fetal heart rate and rhythm complicating labor and delivery; O62.1 Secondary uterine inertia; E03.9 Hypothyroidism, unspecified; Z3A.39 39 weeks gestation of pregnancy; Z37.0 Single live birth; Z96.41 Presence of insulin pump (external) (internal); Z79.4 Long term (current) use of insulin; Z79.84 Long term (current) use of oral hypoglycemic drugs; Z79.899 Other long term (current) drug therapy